=== PATIENT | female | born 1945 | race Caucasian/White ===

== ENCOUNTER 2023-02-09 06:41 | Day surgery (SDC) | payer BC ==
[~2023-02-09] VITALS: Ht 154.9 cm; Wt 49.7 kg
[2023-02-09] VITALS (11 sets, daily range): BP systolic 102–151; BP diastolic 42–62
[2023-02-09] MEDS ORDERED: normal saline 1000ml 1,000 ML IV PRN (07:10)
[2023-02-09] MEDS ORDERED: CLOP-32 PO (07:24)
[2023-02-09] MEDS ORDERED: ALBU6.7H14 INH (07:24)
[2023-02-09] MEDS ORDERED: SIME125C43 PO (07:24)
[2023-02-09] MEDS ORDERED: ACET-2119 PO (07:24)
[2023-02-09 07:36] LABS: BASOPHILS % (AUTO) 0.7 % (0-1); EOSINOPHILS # (AUTO) 0.1 X10'3 (0-0.9); EOSINOPHILS % (AUTO) 1.9 % (0-6); HEMATOCRIT 37.9 % (35.0-45.0); HEMOGLOBIN 12.9 g/dl (12.0-16.0); LYMPHOCYTES # (AUTO) 1.9 X10'3 (1.1-4.8); LYMPHOCYTES % (AUTO) 33.7 % (21-51); MEAN CORPUSCULAR HEMOGLOBIN 35.8 PG (27.0-31.0); MEAN CORPUSCULAR HGB CONC 33.9 g/dL (33.0-36.5); MEAN CORPUSCULAR VOLUME 105.6 FL (78-98); MEAN PLATELET VOLUME 8.1 FL (7.4-10.4); MONOCYTES # (AUTO) 0.7 X10'3 (0-0.9); MONOCYTES % (AUTO) 13.2 % (2-12); NEUTROPHILS # (AUTO) 2.9 X10'3 (1.8-7.7); NEUTROPHILS % (AUTO) 50.5 % (42-75); PLATELET COUNT 276 X10'3 (140-440); RED BLOOD COUNT 3.59 X10'6 (4.20-5.60); RED CELL DISTRIBUTION WIDTH 18.5 % (11.5-14.5); WHITE BLOOD COUNT 5.6 X10'3 (4.5-11.0)
[2023-02-09] MEDS ORDERED: midazolam 1 mg/ML 2ml injection ONE ×2 (08:15→10:02)
[2023-02-09] MEDS ORDERED: heparin 1,000 UNITS/NS 500ml 500 ML ONE (08:15)
[2023-02-09] MEDS ORDERED: iohexol 300mg/ml 100ml inj. ONE (08:15)
[2023-02-09] MEDS ORDERED: fentaNYL/PF 50MCG/1 ML 2ML syringe ONE ×2 (08:15→10:03)
[2023-02-09 08:47] LABS: ALBUMIN 4.1 G/DL (3.4-5.0); ANION GAP 13 (8-16); BLOOD UREA NITROGEN 10 MG/DL (7-18); BUN/CREATININE RATIO 12.7 (10.0-20.0); CALCIUM 9.5 MG/DL (8.5-10.1); CHLORIDE 102 MMOL/L (99-107); CREATININE 0.79 MG/DL (0.40-0.90); GLUCOSE 78 MG/DL (70-104); POTASSIUM 3.9 MMOL/L (3.5-5.1); SODIUM 137 MMOL/L (135-145); TOTAL CARBON DIOXIDE 22.5 MMOL/L (24-32); eGFR 70 ML/MIN
[2023-02-09] MEDS ORDERED: normal saline 1000ml 1,000 ML IV SCH (11:20)
== END 2023-02-09 16:45 | disposition home or self-care (01) ==
LOC: SSTAY O 06:41
PROVIDERS: ATTEND Radiology Vascular & Interventional Radiology
DX: I70.211 Atherosclerosis of native arteries of extremities with intermittent claudication, right leg (principal); J45.909 Unspecified asthma, uncomplicated; Z98.890 Other specified postprocedural states; Z79.899 Other long term (current) drug therapy; Z79.82 Long term (current) use of aspirin; Z88.8 Allergy status to other drugs, medicaments and biological substances; Z79.01 Long term (current) use of anticoagulants; Z82.49 Family history of ischemic heart disease and other diseases of the circulatory system; Z80.0 Family history of malignant neoplasm of digestive organs
CPT/HCPCS: 36415; 37224; 75625; 75716; 80048; 85025; 85610; 99152; 99153; C1760; C1769; C1894; C2623; J1644; J2250; J3010; J7030; Q9967; A6213